=== PATIENT | female | born 1940 | race Caucasian/White ===

== ENCOUNTER → 2019-09-26 10:58 | Outpatient (CLI) | payer MEDICARE, OTHER, SELFPAY ==
--- NOTE | 2019-09-26 11:02 | DI.MRI.S_ITS ---
PROCEDURE: MR LUMBAR SPINE WO CON INDICATIONS: Low back pain left lower extremity radicular features TECHNIQUE: Noncontrast sagittal T1 spin echo and T2 fast echo, sagittal STIR, axial T1 and T2 fast spin echo through the lumbar spine. In cases with scoliosis, additional coronal T2 fast spin echo may be performed. COMPARISON: [facility], MR, LUMBAR SPINE W/O CONTRAST, 01/22/2015, 14:14. FINDINGS: Image quality: Excellent. Alignment and Curvature: Mild degenerative anterolisthesis of L4 on L5, measuring 6 mm, unchanged. Trace degenerative anterolisthesis of L3 on L4. Trace degenerative retrolisthesis of L1 on L2. Bone Marrow: Marrow is of normal overall signal. No acute vertebral body compression fractures. Spinal Cord: Conus medullaris terminates at the L1 level. Visualized cord demonstrates normal signal and size. Paraspinous Soft Tissues: No paravertebral masses. T12-L1: Mild disc bulge. No canal stenosis or foraminal stenosis. L1-L2: Mild disc bulge. Facet and ligament hypertrophy. No canal stenosis or foraminal stenosis. L2-L3: Mild disc bulge. Facet and ligament hypertrophy. Mild canal stenosis. Mild to moderate bilateral foraminal narrowing. L3-L4: Mild disc bulge. Prominent facet and ligament hypertrophy. Moderate canal stenosis. Mild to moderate bilateral foraminal narrowing with flattening deformity on the bilateral exiting L3 nerve roots. L4-L5: Mild degenerative anterolisthesis of L4 on L5. Posterior disc bulge. Prominent facet and ligament hypertrophy. Mild canal stenosis. Mild to moderate right foraminal narrowing. Moderate left foraminal narrowing with flattening deformity of the exiting left L4 nerve root. L5-S1: Severe chronic disc height loss. No canal stenosis. Prominent bilateral facet hypertrophy. Mild left foraminal narrowing. IMPRESSION: 1. Multifactorial canal stenosis is mild at L2-L3, moderate L3-L4, and mild at L4-L5. 2. Multilevel facet arthropathy, prominent at L4-L5 and L5-S1. 3. Multilevel foraminal narrowing as described above. Dictated by: Michael Linares M.D. on 09/26/2019 at 11:50 Approved by: Michael Linares M.D. on 09/26/2019 at 11:59
--- NOTE | 2019-09-26 11:02 | DI.RAD.S_ITS ---
PROCEDURE: XR LUMBAR SPINE MIN 4V INDICATIONS: back pain TECHNIQUE: 5 views of the lumbar spine were acquired. COMPARISON: None. FINDINGS: Bones: 5 nonrib-bearing vertebrae are present. There is normal bony alignment. No vertebral body compression fractures. No suspicious bony lesions. Note is made of only a mild degree of degenerative disc disease and facet osteoarthritis from L3 inferiorly is moderate to moderately severe and allows slight grade 1 anterolisthesis of L3 on L4 and L4 on L5. Soft tissues: Overlying bowel gas pattern is normal. No suspicious soft tissue calcifications. Oblique images: No pars defects. IMPRESSION: Degenerative disc disease is quite mild but facet osteoarthritis is more prominent and causes ligamentous laxity allowing a small degree of subluxation is noted. No trauma found. Dictated by: Titi Tinsley M.D. on 09/26/2019 at 13:28 Approved by: Titi Tinsley M.D. on 09/26/2019 at 13:29
== END ==
PROVIDERS: PCP Family Medicine; Referring Provider Physical Medicine & Rehabilitation; Visit Provider Physical Medicine & Rehabilitation
DX: M43.16 Spondylolisthesis, lumbar region (principal); M54.41 Lumbago with sciatica, right side; M54.42 Lumbago with sciatica, left side; M48.061 Spinal stenosis, lumbar region without neurogenic claudication; M48.07 Spinal stenosis, lumbosacral region; M47.26 Other spondylosis with radiculopathy, lumbar region; M47.27 Other spondylosis with radiculopathy, lumbosacral region
CPT/HCPCS: 72110; 72148

== ENCOUNTER 2019-10-03 09:26 | Outpatient (CLI) | payer MEDICARE, OTHER, SELFPAY ==
[2019-10-03] VITALS (9 sets, daily range): BP systolic 138–166; BP diastolic 67–101; PULSE 66–88; RESP 16–17; TEMP 36.2; O2SAT 95–100
--- NOTE | 2019-10-03 09:28 | DI.RAD.S_ITS ---
PROCEDURE: PAIN L/S TRANSFORAMINAL INJECT INDICATIONS: SPONDYLOLISTHESIS FINDINGS: Fluoroscopic spot filming was performed to verify placement of spinal needles at the L4-L5 level(s), as labeled on the films. Appropriate location(s) of the needle tip(s) was confirmed by injection of iodinated contrast. Dictated by: Wily Sandoval M.D. on 10/03/2019 at 14:42 Approved by: Wily Sandoval M.D. on 10/03/2019 at 14:42
[2019-10-03] MEDS: MIDAZOLAM 5 MG/5 ML VIAL IV (11:28)
[2019-10-03] MEDS: fentaNYL 100 MCG/2 ML INJ 50 MCG IV (11:29)
[2019-10-03] MEDS: DEXAMETHASONE 10 MG/ML VIAL 20 MG INJ (11:37)
[2019-10-03] MEDS: BUPIVACAINE 0.25% (PF) VIAL 2 ML INJ (11:37)
[2019-10-03] MEDS: BETAMETHASONE 30 MG/5 ML MDV 6 MG INJ (11:37)
[2019-10-03] MEDS: IOPAMIDOL 15 ML VIAL 3 ML INJ (11:37)
--- NOTE | 2019-10-03 11:41 | PC.NURSE ---
ASSISTING PT OFF TABLE AND TRANSPORTING TO POST PROC AREA IN STABLE CONDITION. PASSING RN CARE OF PT OFF TO ARAVIND Montes De Oca RN.
--- NOTE | 2019-10-03 11:45 | P.PCN_ITS ---
Procedures Date/Time Date of procedure: 10/03/19 Time of procedure: 11:46 General Procedure description: PREOP DIAGNOSIS 1. FORMAINAL STENOSIS WITH LE SYMPTOMS POST OP DIAGNOSIS 1. FORMAINAL STENOSIS WITH LE SYMPTOMS PROCEDURES 1. FLUOROSCOPICALLY GUIDED CONTRAST CONTROLLED TRANSFORAMINAL EPIDURAL STEROID INJECTION - LEFT L4/5 PHYSICIAN: Adrien Carbone DO INDICATIONS: Michelle is referred by for treatment of Foraminal Stenosis with Left LE Symptoms FINDINGS Foraminal Nerve Root Compression secondary to disc disease and facet hypertrophy DESCRIPTION OF PROCEDURE: Following review of allergy and review of potential side effects and complications, including, but not necessarily limited to, infection, allergic reaction, local tissue breakdown, stroke, temporary or permanent nerve injury, paralysis, and possible , the patient indicated that the patient understood and agreed to proceed. An informed consent document was signed by the patient, witnessed by a nurse, and placed in the patient's chart. Additionally, other treatment options including medications, modalities, and physical therapy were reviewed with the patient. After review of previous anaesthesic history and IV conscious sedation the pat ient was deemed safe to proceed with todays procedure with IV conscious sedation as ASA class II designation. Safety time-out was performed to confirm patient ID, procedure to be performed and site of procedure. IV sedation was accomplished with a combination of 2mg of Versed and 50mcg of Fentanyl administered by the RN after DO order, titrated to patient comfort during the course of the procedure while the patient remained responsive to all verbal commands In the prone position following sterile prep and drape of the lumbar region, the left L4/5 posterior neuroforamen was identified fluoroscopically. The skin was anesthetized via a 25-gauge 1.5-inch needle with 1% lidocaine solution. At this point, a 25-gauge 3.5-inch spinal needle was atraumatically introduced and advanced under fluoroscopic guidance through the posterior left L4/5 neuroforamen to approximately the anterior aspect of the canal. Depth was confirmed on lateral view. Following negative aspiration, injection of ap proximately 1.5cc of Isovue 200 under live fluoroscopy in the AP view confirmed excellent flow along the nerve root, into the epidural space without vascular or intrathecal uptake observed Radiological data, including multiple fluoroscopic views of the lumbosacral spine, reveal a spinal needle at the left L4/5 posterior neuroforamen. Subsequent views show flow of contrast material flowing superiorly and inferiorly along the nerve root confirming epidural flow. Subsequently, a test dose of 1.5 cc of 1% lidocaine solution was administered and patient was observed for two minutes for signs or symptoms of complications, including abdominal pain, shortness of breath, bilateral upper or lower extremity weakness, nausea and vomiting, prior to steroid injection. At this point, a total of 3cc or 20mg of dexamethasone and 6mg of betamethasone was injected without incident. The procedure tolerated the procedure well without signs or symptoms of complications prior to transfer to the recovery area continued monitoring without incident. The patient was then transferred to the recovery area where they were observed for an appropriate time after the injection. The patient reported a VAS score of 7 prior to the procedure and a post- procedure VAS of 0. Total Fluoroscopy Time: 12 seconds Total Conscious Sedation Time: 24 min POST OP INSTRUCTIONS The patient was provided a Pain Log to continue to record their response to the target-specific procedure prior to follow-up visit with their referring physician. Additionally, specific post-injection care instructions and a contact number to our office were provided if concerns arise regarding possible complications associated with the procedure are suspected. Adrien Carbone, Complications: none
--- NOTE | 2019-10-03 12:02 | PC.NURSE ---
1158: Received patient post procedure by Ratna SCHULTZ via . Sleepy, arouses easily to voice. Transferred from WC to chair, with assistance. Daughter Maribeth at bedside providing supportive care.
== END 2019-10-03 12:00 | disposition home or self-care (01) ==
LOC: RAD 09:27
PROVIDERS: PCP Family Medicine; Referring Provider Family Medicine; Visit Provider Physical Medicine & Rehabilitation
DX: M48.061 Spinal stenosis, lumbar region without neurogenic claudication (principal); M51.16 Intervertebral disc disorders with radiculopathy, lumbar region
CPT/HCPCS: 64483; 99152; J0702; J1100; J2250; J3010

== ENCOUNTER → 2020-01-07 10:24 | Outpatient (CLI) | payer MEDICARE, OTHER, SELFPAY ==
[2020-01-08 01:58] LABS: COVID19 Sendout Not Detected (Not Detect)
== END ==
PROVIDERS: PCP Family Medicine; Visit Provider Physician Assistant
DX: Z01.812 Encounter for preprocedural laboratory examination (principal)
CPT/HCPCS: 87635

== ENCOUNTER 2020-01-10 09:25 | Outpatient (CLI) | payer MEDICARE, OTHER, SELFPAY ==
[2020-01-10] VITALS (8 sets, daily range): BP systolic 138–163; BP diastolic 72–105; PULSE 72–82; RESP 14–16; TEMP 36.1; O2SAT 95–100
--- NOTE | 2020-01-10 09:27 | DI.RAD.S_ITS ---
PROCEDURE: PAIN L INTERLAMINAR/CAUDAL INJ INDICATIONS: SPONDYLOSIS FINDINGS: Fluoroscopic spot filming was performed to verify placement of spinal needles at the L5-S1 level(s), as labeled on the films. Appropriate location(s) of the needle tip(s) was confirmed by injection of iodinated contrast. Dictated by: Wily Sandoval M.D. on 01/10/2020 at 11:32 Approved by: Wily Sandoval M.D. on 01/10/2020 at 11:36
[2020-01-10] MEDS: MIDAZOLAM 5 MG/5 ML VIAL IV (10:25)
[2020-01-10] MEDS: BUPIVACAINE 0.25% (PF) VIAL 2 ML INJ (10:34)
[2020-01-10] MEDS: BETAMETHASONE 30 MG/5 ML MDV 6 MG INJ (10:34)
[2020-01-10] MEDS: IOPAMIDOL 15 ML VIAL 3 ML INJ (10:35)
[2020-01-10] MEDS: DEXAMETHASONE 10 MG/ML VIAL 20 MG INJ (10:35)
--- NOTE | 2020-01-10 10:40 | P.PCN_ITS ---
Procedures Date/Time Date of procedure: 01/10/20 Time of procedure: 10:41 General Procedure description: PROVIDER: Adrien Carbone DO Operative Note PREOP DIAGNOSIS 1. HNP WITH RADICULAR FEATURES, 2. MULTILEVEL CENTRAL STENOSIS, POST OP DIAGNOSIS 1. HNP WITH RADICULAR FEATURES, 2. MULTILEVEL CENTRAL STENOSIS, PROCEDURES 1. FLUORSCOPICALLY GUIDED CONTRAST CONTROLLED INTERLAMINAR EPIDURAL STEROID INJECTION - L5/S1 PHYSICIAN: Adrien Carbone DO INDICATIONS Michelle is referred by Dr. Leonardo for treatment of Bilateral Foraminal Stenosis L>R LE symptoms. FINDINGS Multilevel Central Spinal Stenosis with Nerve Root Compression DESCRIPTION OF PROCEDURE Fluoroscopically guided, contrast-controlled L5/S1 translaminar epidural steroid injection. Following review of allergy and review of potential side effects and complications, including, but not necessarily limited to, infection, allergic reaction, local tissue breakdown, temporary as well as permanent nerve injury, paralysis, stroke and possible , the patient indicated that the patient understood and agreed to proceed. An informed consent document was signed by the patient, witnessed by a nurse, and placed in the patient's chart. Additionally, other treatment options including modalities, medications, and physical therapy were reviewed with the patient. After review of previous anaesthesic history and IV conscious sedation the patient was deemed safe to proceed with todays procedure with IV conscious sedation as ASA class II designation. Safety time-out was performed to confirm patient ID, procedure to be performed and site of procedure. IV sedation was accomplished with a combination of 2mg of Versed administered by the RN after DO order, titrated to patient comfort during the course of the procedure while the patient remained responsive to all verbal commands. In the prone position, following sterile prep and drape of the lumbar region, the L5/S1 translaminar space was identified fluoroscopically. The skin was anesthetized via a 25-gauge, 1.5-inch needle with 1% lidocaine solution. At this point, a 22-gauge short bevel spinal needle was atraumatically introduced and advanced under fluoroscopic guidance into the region of the L5/S1 t ranslaminar space. Depth was confirmed on lateral view. Radiological data, including multiple fluoroscopic views of the lumbar spine, reveal a spinal needle at the L5/S1 translaminar space. Lateral views then show placement of the needle in the epidural space. Subsequent views show contrast material flowing superiorly and inferiorly in the epidural space. No vascular or intrathecal uptake is observed. At this point, using loss of resistance technique with saline and air, the epidural space was entered. This was confirmed following negative aspiration with injection of approximately 1.5 cc of Isovue 200, showing excellent epidural flow without vascular or intrathecal uptake. At this point, 1 cc of 1% lidocaine solution combined with 3cc or 20mg of dexamethasone and 6mg of betame thasone was injected without incident. The patent tolerated the procedure without signs of symptoms of complications prior to transfer to the recovery area for further monitoring. The patient was t hen transferred to the recovery area where they were observed for an appropriate period of time after the injection. The patient reported a VAS score of 6 prior to the procedure and a post-procedure VAS of 0. Total Fluoroscopy Time: 7 seconds Total Conscious Sedation Time: 24min POST OP INSTRUCTIONS The patient was provided a Pain Log to continue to record their response to the target-specific procedure prior to follow-up visit with their referring physician. Additionally, specific post-injection care instructions and a contact number to our office were provided if concerns arise regarding possible complications associated with the procedure are suspected. Adrien Carbone DO Complications: none
--- NOTE | 2020-01-10 11:20 | PC.NURSE ---
pt returned to pre proc room via , stable transfer with 1PA from wc to chair. Monitoring resumed by ANTOINE Haas
== END 2020-01-10 11:00 | disposition home or self-care (01) ==
PROVIDERS: PCP Family Medicine; Referring Provider Physical Medicine & Rehabilitation; Visit Provider Physical Medicine & Rehabilitation
DX: M51.17 Intervertebral disc disorders with radiculopathy, lumbosacral region (principal); M48.07 Spinal stenosis, lumbosacral region
CPT/HCPCS: 62323; 99152; J0702; J1100; J2250; J3010

== ENCOUNTER → 2023-01-26 13:52 | Outpatient (CLI) | payer MEDICARE, OTHER, SELFPAY ==
--- NOTE | 2023-01-26 13:57 | DI.RAD.S_ITS ---
PROCEDURE: XR KNEE RT 3V INDICATIONS: RIGHT KNEE PAIN TECHNIQUE: 3 views of the knee were acquired. COMPARISON: None. FINDINGS: Bones: No fractures or dislocations. Joint space narrowing most pronounced in the medial compartment. Tricompartmental osteophytosis. No suspicious bony lesions. Soft tissues: Suprapatellar joint effusion. No suspicious soft tissue calcifications. Arterial vascular calcifications. 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 Moderate joint effusion. Dictated by: Jose Francis M.D. on 01/26/2023 at 15:19 Approved by: Jose Francis M.D. on 01/26/2023 at 15:19
--- NOTE | 2023-01-26 13:57 | DI.RAD.S_ITS ---
PROCEDURE: XR LUMBAR SPINE MIN 4V INDICATIONS: BACK PAIN TECHNIQUE: 5 views of the lumbar spine were acquired, including bilateral oblique views. COMPARISON: [facility], , XR LUMBAR SPINE MIN 4V, 09/26/2019, 11:40. FINDINGS: Bones: 5 nonrib-bearing vertebrae are present. Mild levoscoliosis. Exaggerated lumbar spine lordosis. Mild multilevel spondylolisthesis. For example anterolisthesis of L4 on L5 measuring 0.6 cm, grade 1. Overall these findings are not significantly changed compared to 2019. Lower lumbar spine facet joint hypertrophy. No vertebral body compression fractures. No suspicious bony lesions. Soft tissues: Overlying bowel gas pattern is normal. No suspicious soft tissue calcifications. Arterial vascular calcifications. Oblique images: No pars defects. IMPRESSION: Moderate DDD and degenerative changes. Overall similar to 2019. Dictated by: Jose Francis M.D. on 01/26/2023 at 15:21 Approved by: Jose Francis M.D. on 01/26/2023 at 15:23
--- NOTE | 2023-01-26 13:57 | DI.RAD.S_ITS ---
PROCEDURE: XR KNEE LT 3V INDICATIONS: LEFT KNEE PAIN TECHNIQUE: 3 views of the knee were acquired. COMPARISON: None. FINDINGS: Bones: No fractures or dislocations. Mild to moderate degenerative changes. No suspicious bony lesions. Soft tissues: Small joint effusion. No suspicious soft tissue calcifications. IMPRESSION: No acute osseous abnormality. [id number] degenerative changes. Dictated by: Jose Francis M.D. on 01/26/2023 at 15:17 Approved by: Jose Francis M.D. on 01/26/2023 at 15:18
== END ==
PROVIDERS: PCP Family Medicine; Referring Provider Physical Medicine & Rehabilitation; Visit Provider Physical Medicine & Rehabilitation
DX: M17.11 Unilateral primary osteoarthritis, right knee (principal); M25.461 Effusion, right knee; M25.462 Effusion, left knee; M51.36 Other intervertebral disc degeneration, lumbar region; M47.816 Spondylosis without myelopathy or radiculopathy, lumbar region; M43.16 Spondylolisthesis, lumbar region; M51.26 Other intervertebral disc displacement, lumbar region; M25.562 Pain in left knee; M25.561 Pain in right knee; M41.52 Other secondary scoliosis, cervical region
CPT/HCPCS: 72110; 73562; 99214